=== PATIENT | female | born 1960 | race Caucasian/White ===

== ENCOUNTER 2017-03-03 19:34 | Emergency (ER) | payer OTHER ==
[2017-03-03 19:55] VITALS: BP 99/69
[2017-03-03] MEDS ORDERED: Ibuprofen TAB* 400 MG PO ONE (20:18)
--- NOTE | 2017-03-03 20:38 | UC ---
Lower Extremity/Ankle HPI - History of Current Complaint Chief Complaint: UCLowerExtremity Stated Complaint: RIGHT FOOT INJURY Time Seen by Provider: 03/03/17 20:29 Hx Obtained From: Patient ?: No Onset/Duration: Sudden Onset - jumped out of the back of a forklift picker truck and hurt foot and buttocks., Worse Since Severity Initially: Moderate Severity Currently: Moderate Aggravating Factor(s): Standing, Ambulation Alleviating Factor(s): Rest, Elevation Able to Bear Weight: No - using crutches - Risk Factors Gout Risk Factors: Age Over 40 DVT Risk Factors: Smoking - Allergies/Home Medications Allergies/Adverse Reactions: Allergies Allergy/AdvReac Type Severity Reaction Status Date / Time Penicillins Allergy Intermediate Rash Verified 03/03/17 19:43 Acetaminophen Allergy Unknown Vomiting Verified 03/03/17 19:44 [From Darvocet-N] Propoxyphene Allergy Unknown Vomiting Verified 03/03/17 19:44 [From Darvocet-N] Home Medications: Home Medications Ibuprofen TAB* [Motrin TAB* 800 MG] 800 mg PO Q6H PRN 03/03/17 [History Confirmed 03/03/17] QUEtiapine TAB* [SEROquel TAB*] 300 mg PO DAILY 03/03/17 [History Confirmed 07/08] PMH/Surg Hx/FS Hx/Imm Hx Respiratory History: COPD - Surgical History Surgical History: Yes Surgery Procedure, Year, and Place: hysterectomy, bi-lat knees--meniscus tears x2 each side - Family History Known Family History: Positive: Unknown - Adopted - Social History Occupation: Disabled Lives: Alone Alcohol Use: None Substance Use Type: None Smoking Status (MU): Heavy Every Day Tobacco Smoker Type: Cigarettes Amount Used/How Often: 1/2 ppd Length of Time of Smoking/Using Tobacco: 33 yrs Have You Smoked in the Last Year: Yes Household Exposure Type: Cigarettes Review of Systems Skin: Bruising - right foot Musculoskeletal: Arthralgia All Other Systems Reviewed And Are Negative: Yes Physical Exam Triage Information Reviewed: Yes Appearance: Well-Appearing, No Pain Distress - at rest with foot elevated, Thin Vital Signs: Initial Vital Signs Temp 98.8 F 03/03/17 19:47 Pulse 95 03/03/17 19:47 Resp 20 03/03/17 19:47 BP 99/69 03/03/17 19:47 Pulse Ox 98 03/03/17 19:47 Vital Signs Reviewed: Yes Eyes: Positive: Conjunctiva Inflamed Neck exam: Normal Respiratory: Positive: Decreased breath sounds Cardiovascular Exam: Normal Musculoskeletal: Positive: ROM Limited @ - right foot and ankle., Other: - Tender over the plantar fascia and lateral malleolus. Neurological Exam: Normal Psychological Exam: Normal Skin Exam: Normal Lower Extremity Course/Dx - Differential Dx/Diagnosis Differential Diagnosis/HQI/PQRI: Contusion, Dislocation, Fracture (Closed), Sprain Provider Diagnoses: Contusion foot. Sprain ankle. Discharge - Discharge Plan Condition: Stable Disposition: HOME Patient Education Materials: Foot Sprain (ED), Crutch Instructions (ED) Referrals: EVIE Silver [Primary Care Provider] - Paco Stafford MD [Medical Doctor] - Additional Instructions: Smoking Cessation Tricks. 1. Cut down by 1 cigarette per day every 2-3 days. Write the number of smokes for that day on the calendar. 2. Identify triggers to smoking: after meals, on the phone, in the car, with coffee, on breaks at work, etc. 3. Formulate a plan with a behavior to replace the smoking. Fireballs in the car , doodle pad on the phone, flavored creamer for the coffee, go for a walk after a meal or on break at work. 4. For stress smokes do deep breathing relaxation. Breath deep in through the nose hold the breath in for a few seconds then breath out slowly through the mouth. For follow up, call [facility] and ask for Dr. Allen.
--- NOTE | 2017-03-03 21:20 | RAD ---
Indication: Right ankle injury and tenderness. 3 views of the right ankle demonstrates no fracture. No other bone or joint abnormality is noted. IMPRESSION: No fracture of the right ankle is noted.
--- NOTE | 2017-03-03 21:21 | RAD ---
Indication:: Right heel pain. 3 views of the calcaneus demonstrates no fracture. Deformity of the head of the third metatarsal is noted. No recent fracture is noted. IMPRESSION: No fracture of the calcaneus or right foot is noted.
== END 2017-03-03 21:20 | disposition home or self-care (01) ==
LOC: UCCORT 19:34
DX: S90.31XA Contusion of right foot, initial encounter (principal); S93.401A Sprain of unspecified ligament of right ankle, initial encounter; W17.89XA Other fall from one level to another, initial encounter; Y93.9 Activity, unspecified; Y92.812 Truck as the place of occurrence of the external cause; J44.9 Chronic obstructive pulmonary disease, unspecified; Z90.710 Acquired absence of both cervix and uterus; Z88.6 Allergy status to analgesic agent; Z88.0 Allergy status to penicillin; F17.210 Nicotine dependence, cigarettes, uncomplicated
CPT/HCPCS: 99213; A9270-GY; G0463

== ENCOUNTER 2017-09-24 06:00 | Day surgery (SDC) | payer OTHER ==
[~2017-09-24 06:00] MED LIST: Buffered Lidocaine 0.9% SYRIN* 5 ML/SYR SYRINGE INTRADERM ONE; Dexamethasone TAB* 4 MG PO ONE; Famotidine IV* 10 MG/ML 2 ML (20 mg) IV ONE; Famotidine IV* 10 MG/ML 2 ML (20 mg) ONE
[2017-09-24] MEDS ORDERED: Clindamycin 900 MG IVPREMIX(* 900 MG/50 ML SDV IV ONE (06:05)
[2017-09-24] MEDS ORDERED: Bupivacaine 0.5% SDV PF* 10-30ML VIAL ONE (07:07)
[2017-09-24] MEDS ORDERED: Lidocaine 2% PF* 10 ML AMP ONE (07:07)
[2017-09-24] MEDS ORDERED: fentaNYL* 50 MCG/ML 2 ML VIAL (100 MCG VIAL) ONE ×3 (07:15→08:55)
[2017-09-24] MEDS ORDERED: Midazolam* 1 MG/ML 2 ML VIAL (2 MG) ONE (07:15)
[2017-09-24] MEDS ORDERED: Ketorolac INJ* 30 MG/ML 1 ML VIAL ONE (08:00)
[2017-09-24] MEDS ORDERED: Ondansetron INJ* 2 MG/ML VIAL ONE (08:00)
[2017-09-24] MEDS ORDERED: Propofol* 10 MG/ML 20 ML BTL IV PUSH ONE (08:00)
[2017-09-24] MEDS ORDERED: Phenylephrine INJ* 10 MG/ML 1 ML VIAL (10 MG) ONE (08:00)
[2017-09-24] MEDS ORDERED: HYDROmorphone INJ* 1 MG/ML CARPUJECT SYRINGE IV PRN (08:17)
[2017-09-24] MEDS ORDERED: DiMENhydriNATE IV* 50 MG/ML VIAL IV PUSH PRN (08:17)
[2017-09-24] MEDS ORDERED: Naloxone* 0.4 MG/ML 1 ML VIAL IV PRN (08:17)
[2017-09-24] MEDS: fentaNYL* 50 MCG/ML 2 ML VIAL (100 MCG VIAL) IV PRN ×2 (08:55→09:08)
[2017-09-24] MEDS ORDERED: oxyCODONE TAB* 5 MG TAB ONE (09:04)
[2017-09-24] MEDS ORDERED: HYDROmorphone INJ* 2 MG/ML CARPUJECT SYRINGE ONE (09:31)
[2017-09-24] MEDS ORDERED: DiMENhydriNATE IV* 50 MG/ML VIAL ONE (09:37)
[2017-09-24 10:32] VITALS: BP 131/72
--- NOTE | 2017-09-24 17:10 | RAD ---
CPT II Codes: 6045F INDICATION: Right ankle subtalar fusion. Fluoroscopic services provided for referring physician. 4.3 seconds of fluoroscopy time was used. 3 spot images demonstrates subtalar fusion. IMPRESSION: Fluoroscopic services provided for referring physician for fusion.
--- NOTE | 2017-09-25 14:51 | OP ---
DATE OF OPERATION: 09/24/17 - [facility] DATE OF : 62 ATTENDING SURGEON: Emeka Jane MD LIVESTOCK RANCHER: Dana Casillas PA-C PRE-OP DIAGNOSIS: Right subtalar arthrosis. POST-OP DIAGNOSIS: Right subtalar arthrosis. PRIMARY PROCEDURE: Right subtalar fusion, tibia bone graft. DESCRIPTION OF PROCEDURE: The patient was taken to the operating room where a medial longitudinal incision along the sinus tarsi in a Arvizu approach. Lamina clinical documentation improvement specialist was used to open the subtalar joint, which was markedly arthrotic. Curette and a small power bur was used to prepare the joint for arthrodesis. Proximally, at Gerdy's tubercle, we made a 2 cm corticotomy and harvested cancellous bone from the proximal tibia. The cancellous bone was mixed with some allograft and some DBX putty and placed along the subtalar joint space. We then pinned the joint with the 6.5 cannulated screw from the heel up to the body of the talus and matched this with a top down screw in the talar neck in the body of the calcaneus. X-rays intraoperatively showed satisfactory position. We packed allograft chips in to the proximal tibia in the defect and closed the periosteum with 2-0 Vicryl and 3-0 nylon in the foot. We irrigated thoroughly and closed both heel and dorsal wounds with nylon and subcutaneous 2-0 Vicryl and tram for the skin. Compression dressing, plaster splint applied. [id number]/[facility] #: [id number] MTDD
== END 2017-09-24 10:20 | disposition home or self-care (01) ==
LOC: OR 06:00
PROVIDERS: ATTEND Orthopaedic Surgery
DX: M19.171 Post-traumatic osteoarthritis, right ankle and foot (principal); S92.011D Displaced fracture of body of right calcaneus, subsequent encounter for fracture with routine healing; F17.210 Nicotine dependence, cigarettes, uncomplicated; J44.9 Chronic obstructive pulmonary disease, unspecified; F41.8 Other specified anxiety disorders; I73.9 Peripheral vascular disease, unspecified; X58.XXXD Exposure to other specified factors, subsequent encounter
CPT/HCPCS: 76001; A9270-GY; C1713; C1776; C9359; J1170; J1240; J1885; J2001; J2250; J2405; J2704; J3010; J8540

== ENCOUNTER → 2018-07-22 11:06 | Day surgery (SDC) | payer OTHER ==
[~2018-07-22 11:06] MED LIST changes: +Acetaminophen TAB* 325 MG PO PRN; +Atracurium* 10 MG/ML 10 ML VIAL ONE; +Bupivacaine 0.5%* 50 ML VIAL ONE; +Clindamycin 900 MG/D5W BAG(*) 900 MG/50 ML BAG IVPB ONE; +Dexamethasone IV* 4 MG/ML 1 ML (4 MG) IV SLOW PU ONE; +Dexamethasone IV* 4 MG/ML 1 ML (4 MG) ONE; -Dexamethasone TAB* 4 MG PO ONE; +DiMENhydriNATE IV* 50 MG/ML VIAL IV PUSH PRN; +HYDROcodone/ACETAMIN 5-325 MG* 1 TAB PO PRN; +Ketorolac INJ* 30 MG/ML 1 ML VIAL IV PRN; +Lactated Ringers 1000 ML Bag* 1,000 ML IV SCH; +Lidocaine 2% PF * 5 ML VIAL ONE; +Midazolam* 1 MG/ML 2 ML VIAL (2 MG) ONE; +Morphine VIAL* 4 MG/ML VIAL (1 ml vial) IV PRN; +Naloxone* 0.4 MG/ML 1 ML VIAL IV PRN; +PROCHLORPERAZINE INJ 5 MG/ML 2 ML VIAL IV PRN; +Phenylephrine INJ* 10 MG/ML 1 ML VIAL (10 MG) ONE; +Propofol* 10 MG/ML 20 ML BTL ONE; +fentaNYL* 50 MCG/ML 2 ML VIAL (100 MCG VIAL) IV PRN; +fentaNYL* 50 MCG/ML 5 ML VIAL (250 MCG VIAL) ONE
[2018-07-22 14:45] VITALS: BP 131/83
--- NOTE | 2018-07-23 02:36 | OP ---
DATE OF OPERATION: 07/22/18 - [facility] DATE OF : 62 SURGEON: Emeka Jane MD FILE CLERK: Sarai Franklin PA-C PRE-OP DIAGNOSIS: Painful heel screw from a previous subtalar fusion. POST-OP DIAGNOSIS: Painful heel screw from a previous subtalar fusion. OPERATIVE PROCEDURE: Removal of right heel screw. DESCRIPTION OF PROCEDURE: The patient was taken to the operating room where 1- cm longitudinal incision was made at the posterior heel. We cannulated the screw with a guidepin up to 6.5 set removing the screw with a cannulated screwdriver and a rongeur for the washer. We then irrigated thoroughly closing with interrupted Prolene sutures and a compression dressing applied. [id number]/[facility] #: [id number] MARY KAY
== END | disposition home or self-care (01) ==
LOC: OR 11:06
PROVIDERS: ATTEND Orthopaedic Surgery
DX: T84.84XA Pain due to internal orthopedic prosthetic devices, implants and grafts, initial encounter (principal); J44.9 Chronic obstructive pulmonary disease, unspecified; Z88.0 Allergy status to penicillin; F17.210 Nicotine dependence, cigarettes, uncomplicated; F41.8 Other specified anxiety disorders; E55.9 Vitamin D deficiency, unspecified; Y83.1 Surgical operation with implant of artificial internal device as the cause of abnormal reaction of the patient, or of later complication, without mention of misadventure at the time of the procedure
CPT/HCPCS: 88300; J1100; J2250; J2704; J3010

== ENCOUNTER 2019-07-18 10:46 | Emergency (ER) | payer OTHER ==
[2019-07-18 11:21] VITALS: BP 113/70
--- NOTE | 2019-07-18 13:18 | UC ---
Back Pain HPI - HPI Summary HPI Summary: 58-year-old female comes in with a chief complaint of low back pain. Patient reports on July 03, 2019 and she bent over the shower and had a sudden onset of low back pain with electric shock running down the back of her right leg. She has had sciatica before and the pain going down the right leg reminds her of the sciatic. Denies any weakness or numbness or difficulty controlling urine or bowels. The pain down the right leg is intermittent. She does not have that now. Pain is worse low back. Pain is worse with movement. - History of Current Complaint Chief Complaint: UCBackPain Stated Complaint: LOW BACK PAIN Time Seen by Provider: 07/18/19 13:07 Pain Intensity: 8 - Allergies/Home Medications Allergies/Adverse Reactions: Allergies Allergy/AdvReac Type Severity Reaction Status Date / Time Penicillins Allergy Intermediate Rash Verified 07/18/19 11:17 propoxyphene AdvReac Vomiting Verified 07/18/19 11:17 [From Ja] PMH/Surg Hx/FS Hx/Imm Hx Previously Healthy: Yes Respiratory History: COPD - Surgical History Surgical History: Yes Surgery Procedure, Year, and Place: Hysterectomy 1993. Bilateral knees-- meniscus tears x2 each side, 2002, 2003 & 2005. ENDOMETRIOSIS-2 Laparoscopies- states she has had 14. Right ankle fusion with hardware 10/07. Removal of hardware right ankle/foot 07/09 - Family History Known Family History: Positive: Unknown - Adopted - Social History Alcohol Use: None Substance Use Type: None Smoking Status (MU): Light Every Day Tobacco Smoker Type: Cigarettes Amount Used/How Often: 4 cigs per day Length of Time of Smoking/Using Tobacco: 33 yrs Have You Smoked in the Last Year: Yes Household Exposure Type: Cigarettes Review of Systems All Other Systems Reviewed And Are Negative: Yes Constitutional: Positive: Negative Skin: Positive: Negative Eyes: Positive: Negative ENT: Positive: Negative Respiratory: Positive: Negative Cardiovascular: Positive: Negative Gastrointestinal: Positive: Negative Genitourinary: Positive: Negative Motor: Positive: Negative Neurovascular: Positive: Negative Musculoskeletal: Positive: Other: - SEE HPI Neurological: Positive: Negative Psychological: Positive: Negative Is Patient Immunocompromised?: No Physical Exam Triage Information Reviewed: Yes Appearance: Well-Appearing, Well-Nourished, Pain Distress - MILD WITH ROM AND EXAM Vital Signs: Initial Vital Signs Temp 98.9 F 07/18/19 11:15 Pulse 113 07/18/19 11:15 Resp 18 07/18/19 11:15 BP 113/70 07/18/19 11:15 Pulse Ox 96 07/18/19 11:15 Vital Signs Reviewed: Yes Eye Exam: Normal Neck: Positive: Supple Respiratory: Positive: No respiratory distress Musculoskeletal: Positive: Other: - Tender to palpation mid low back. Legs have full range of motion full-strength normal sensation. Pain does increase in the low back with right hip flexion. Patellar reflexes 2+ bilaterally. Neurological: Positive: Alert Psychological: Positive: Age Appropriate Behavior Skin Exam: Normal Back Pain Course/Dx - Differential Dx/Diagnosis Provider Diagnosis: Low back pain, Right sided sciatica Discharge ED - Sign-Out/Discharge Documenting (check all that apply): Patient Departure All imaging exams completed and their final reports reviewed: No Studies - Discharge Plan Condition: Stable Disposition: HOME Prescriptions: Cyclobenzaprine TAB* [Flexeril 10 MG TAB*] 10 mg PO TID PRN #15 tab MDD 3 PRN Reason: Pain - Moderate Lidocaine PATCH 5%* [Lidoderm 5% Patch*] 1 patch TRANSDERM DAILY PRN #20 patch PRN Reason: Pain - Moderate Patient Education Materials: Sciatica (ED), Acute Low Back Pain (ED) Forms: *Work Release Referrals: Tania Soriano NP [Primary Care Provider] - Additional Instructions: FOLLOW UP WITH YOUR PRIMARY CARE DOCTOR OR SPORTS MEDICINE. GO TO THE EMERGENCY DEPARTMENT IF WORSE; WEAKNESS, NUMBNESS, DIFFICULTY CONTROLLING BOWEL OR BLADDER, PAIN OR ANY QUESTIONS OR CONCERNS. - Billing Disposition and Condition Condition: STABLE Disposition: Home
== END 2019-07-18 13:23 | disposition home or self-care (01) ==
LOC: UCCORT 10:46
DX: M54.31 Sciatica, right side (principal); M54.5 Low back pain; J44.9 Chronic obstructive pulmonary disease, unspecified; F17.210 Nicotine dependence, cigarettes, uncomplicated; Z96.661 Presence of right artificial ankle joint; Z98.1 Arthrodesis status; Z88.0 Allergy status to penicillin; Z88.5 Allergy status to narcotic agent
CPT/HCPCS: 99212; G0463

== ENCOUNTER 2022-04-25 12:41 | Observation (INO) ==
[2022-04-25] MEDS ORDERED: NS 0.9% 1000 ml BAG 1,000 ML IV ONE (12:48)
[2022-04-25] MEDS ORDERED: cefTRIAXone 1 gm/50 mL D5W 1 GM/50 ML BAG IV ONE (12:48)
[2022-04-25] MEDS ORDERED: Magnesium Sulfate 2 gm BAG 2 GM/50 ML BAG IVPB ONE (12:48)
[2022-04-25] MEDS ORDERED: Azithromycin 500 mg/250 ml NS 500 MG/250 ML BAG IVPB ONE (12:48)
[2022-04-25] MEDS ORDERED: Albuterol/Ipratropium NEB.SOL (2.5/0.5 MG) 3 ML NEB.SOLN ONE (13:07)
[2022-04-25] MEDS: Albuterol/Ipratropium NEB.SOL (2.5/0.5 MG) 3 ML NEB.SOLN INH SCH (13:36)
[2022-04-25 13:46] LABS: ABS Basophils 0.1 10^3/ul (0-0.2); ABS Eosinophils 0.1 10^3/ul (0-0.6); ABS Lymphocytes 1.3 10^3/ul (1.0-4.8); ABS Monocytes 0.9 10^3/ul (0-0.8); ABS Neutrophils 10.4 10^3/ul (1.5-7.7); Eosinophil % 0.6 %; Hematocrit 43 % (35-47); Lymphocyte % 9.9 %; Mean Corpuscular HGB Conc 33 g/dL (31-36); Mean Corpuscular Hemoglobin 29 pg (27-31); Mean Corpuscular Volume 88 fL (80-97); Mean Platelet Volume 8.7 fL (7.4-10.4); Platelet Count 228 10^3/uL (150-450); Red Blood Count 4.88 10^6 /uL (3.70-4.87); Red Cell Distribution Width 15 % (10-15); White Blood Count 12.7 10^3/uL (3.5-10.8)
[2022-04-25 13:54] LABS: INR 0.87 (0.89-1.11)
[2022-04-25] MEDS ORDERED: Albuterol/Ipratropium NEB.SOL (2.5/0.5 MG) 3 ML NEB.SOLN INH ONE (14:05)
[2022-04-25 14:12] LABS: Albumin 4.1 g/dL (3.2-5.2); Albumin/Globulin Ratio 1.6 (1-3); C Reactive Protein 1.34 mg/L (<8.01); Calcium 8.9 mg/dL (8.6-10.3); Globulin 2.5 g/dL (2-4); Potassium 4.2 mmol/L (3.5-5.0); Total Bilirubin 0.2 mg/dL (0.2-1.0); Total Protein 6.6 g/dL (6.4-8.9); eGFR CKD-EPI 101.9 (>60)
[2022-04-25 14:54] LABS: Urine Appearance Clear; Urine Bilirubin Negative (Negative); Urine Blood Negative (Negative); Urine Color Yellow; Urine Glucose Negative (Negative); Urine Ketones Trace (Negative); Urine Nitrite Negative (Negative); Urine Protein Negative (Negative); Urine Specific Gravity 1.012 (1.002-1.030); Urine Urobilinogen Negative (Negative)
[2022-04-25 15:08] LABS: High Sensitivity Troponin 1 Hr 7 pg/mL (<15)
[2022-04-25] MEDS ORDERED: Acetaminop/Codeine 300mg/30mg TAB PO ONE (16:54)
[2022-04-25] MEDS ORDERED: Iohexol 350 (CONTRAST) 500 ML MDV IV ONE (17:47)
[2022-04-25] MEDS ORDERED: Albuterol HFA INHALER 8 gm MDI INH PRN (20:08)
[2022-04-25] MEDS: Enoxaparin 40 MG/0.4 ML SYR SUBCUT SCH (20:38)
[2022-04-25] MEDS ORDERED: Albuterol/Ipratropium NEB.SOL (2.5/0.5 MG) 3 ML NEB.SOLN INH PRN (22:56)
[2022-04-26 06:45] LABS: ABS Basophils 0.1 10^3/ul (0-0.2); ABS Eosinophils 0.1 10^3/ul (0-0.6); ABS Lymphocytes 2.1 10^3/ul (1.0-4.8); ABS Monocytes 1.1 10^3/ul (0-0.8); ABS Neutrophils 7.4 10^3/ul (1.5-7.7); Eosinophil % 0.6 %; Hematocrit 41 % (35-47); Hemoglobin 13.3 g/dL (12.0-16.0); Lymphocyte % 19.4 %; Mean Corpuscular HGB Conc 33 g/dL (31-36); Mean Corpuscular Hemoglobin 29 pg (27-31); Mean Corpuscular Volume 88 fL (80-97); Mean Platelet Volume 8.3 fL (7.4-10.4); Platelet Count 267 10^3/uL (150-450); Red Cell Distribution Width 15 % (10-15); White Blood Count 10.8 10^3/uL (3.5-10.8)
[2022-04-26 06:48] LABS: INR 0.86 (0.89-1.11)
[2022-04-26 06:59] LABS: Calcium 9.2 mg/dL (8.6-10.3); Potassium 4.6 mmol/L (3.5-5.0)
[2022-04-26] MEDS: [UNRECOGNIZED DRUG - OTHER] INH SCH (10:09)
[2022-04-26] MEDS: Enoxaparin 40 MG/0.4 ML SYR SUBCUT SCH (21:09)
[2022-04-27 06:21] LABS: ABS Basophils 0.1 10^3/ul (0-0.2); ABS Eosinophils 0.1 10^3/ul (0-0.6); ABS Lymphocytes 2.8 10^3/ul (1.0-4.8); ABS Monocytes 1.1 10^3/ul (0-0.8); ABS Neutrophils 6.3 10^3/ul (1.5-7.7); Eosinophil % 0.8 %; Hematocrit 44 % (35-47); Hemoglobin 14.3 g/dL (12.0-16.0); Mean Corpuscular HGB Conc 33 g/dL (31-36); Mean Corpuscular Hemoglobin 29 pg (27-31); Mean Corpuscular Volume 87 fL (80-97); Mean Platelet Volume 8.2 fL (7.4-10.4); Platelet Count 272 10^3/uL (150-450); Red Blood Count 4.99 10^6 /uL (3.70-4.87); Red Cell Distribution Width 14 % (10-15); White Blood Count 10.3 10^3/uL (3.5-10.8)
[2022-04-27 06:40] LABS: Calcium 9.2 mg/dL (8.6-10.3); Potassium 4.2 mmol/L (3.5-5.0); eGFR CKD-EPI 105.8 (>60)
[2022-04-27] MEDS: [UNRECOGNIZED DRUG - OTHER] INH SCH (12:52)
[2022-04-27 16:35] VITALS: BP 126/88
== END 2022-04-27 18:50 | disposition home or self-care (01) ==
LOC: ED 12:41 → EDHOLD 12:41 → SUATTDRO 19:32 → MEDTELE 04-26 01:07
PROVIDERS: ADMIT Internal Medicine; ATTEND Internal Medicine

== ENCOUNTER 2023-06-09 19:16 | Inpatient (IN) ==
[2023-06-09] MEDS ORDERED: Albuterol HFA INHALER 8 gm MDI INH PRN (21:15)
[2023-06-09] MEDS: Enoxaparin 40 MG/0.4 ML SYR SUBCUT SCH (22:56)
[2023-06-10 03:45] LABS: ABS Lymphocytes 0.6 10^3/uL (1.0-4.8); ABS Monocytes 0.9 10^3/uL (0.0-0.9); ABS Neutrophils 8.5 10^3/uL (1.5-7.6); Eosinophil % 0.2 %; Hematocrit 31.4 % (35-45); Hemoglobin 10.2 g/dL (11.5-14.3); Lymphocyte % 6.1 %; Mean Corpuscular Hemoglobin 28.3 pg (27-33); Mean Corpuscular Hgb Conc 32.5 g/dL (31-36); Mean Corpuscular Volume 87.1 fL (80-97); Mean Platelet Volume 8.3 fL (7.5-11.2); PCO2 Arterial 72 mmHg (35-45); PO2 Arterial 146 mmHg (80-100); Platelet Count 256 10^3/uL (150-450); Red Cell Distribution Width 13.9 % (12-17)
[2023-06-10 04:18] LABS: Blood Urea Nitrogen 15 mg/dL (6-24); CO2 Carbon Dioxide 42 mmol/L (22-32); Calcium 8.2 mg/dL (8.6-10.3); Chloride 96 mmol/L (101-111); Creatinine, Serum 0.42 mg/dL (0.51-0.95); Glucose 141 mg/dL (70-100); Potassium 3.6 mmol/L (3.5-5.0); Sodium 137 mmol/L (135-145); eGFR CKD-EPI 111.2 (>60)
[2023-06-10] MEDS: NF:BUDESONIDE/GLYCOPYR/FORMOTEROL MDI (NF) INH SCH (17:08)
[2023-06-10] MEDS: Enoxaparin 40 MG/0.4 ML SYR SUBCUT SCH (20:11)
[2023-06-11 04:22] LABS: ABS Basophils 0.1 10^3/uL (0.0-0.1); ABS Eosinophils 0.2 10^3/uL (0.0-0.5); ABS Lymphocytes 2.4 10^3/uL (1.0-4.8); ABS Monocytes 1.1 10^3/uL (0.0-0.9); Eosinophil % 1.7 %; Hematocrit 31.8 % (35-45); Hemoglobin 10.4 g/dL (11.5-14.3); Lymphocyte % 27.4 %; Mean Corpuscular Hemoglobin 28.3 pg (27-33); Mean Corpuscular Hgb Conc 32.6 g/dL (31-36); Mean Corpuscular Volume 86.8 fL (80-97); Mean Platelet Volume 7.9 fL (7.5-11.2); Platelet Count 241 10^3/uL (150-450); Red Blood Count 3.67 10^6/uL (3.63-4.92); Red Cell Distribution Width 13.7 % (12-17); White Blood Count 8.7 10^3/uL (3.8-11.8)
[2023-06-11 04:43] LABS: Blood Urea Nitrogen 9 mg/dL (6-24); CO2 Carbon Dioxide 43 mmol/L (22-32); Calcium 8.2 mg/dL (8.6-10.3); Chloride 99 mmol/L (101-111); Creatinine, Serum 0.46 mg/dL (0.51-0.95); Glucose 84 mg/dL (70-100); Potassium 3.7 mmol/L (3.5-5.0); Sodium 141 mmol/L (135-145); eGFR CKD-EPI 108.8 (>60)
[2023-06-11] MEDS: NF:BUDESONIDE/GLYCOPYR/FORMOTEROL MDI (NF) INH SCH (08:18)
[2023-06-11] MEDS ORDERED: Albuterol/Ipratropium NEB.SOL (2.5/0.5 MG) 3 ML NEB.SOLN INH PRN (18:13)
[2023-06-11] MEDS: Enoxaparin 40 MG/0.4 ML SYR SUBCUT SCH (21:31)
[2023-06-12 06:29] LABS: ABS Basophils 0.1 10^3/uL (0.0-0.1); ABS Eosinophils 0.2 10^3/uL (0.0-0.5); ABS Monocytes 1.1 10^3/uL (0.0-0.9); ABS Neutrophils 4.6 10^3/uL (1.5-7.6); Hematocrit 32.9 % (35-45); Hemoglobin 10.7 g/dL (11.5-14.3); Lymphocyte % 25.1 %; Mean Corpuscular Hemoglobin 28.4 pg (27-33); Mean Corpuscular Hgb Conc 32.6 g/dL (31-36); Mean Corpuscular Volume 87.1 fL (80-97); Mean Platelet Volume 8.3 fL (7.5-11.2); Platelet Count 261 10^3/uL (150-450); Red Blood Count 3.78 10^6/uL (3.63-4.92); Red Cell Distribution Width 13.8 % (12-17)
[2023-06-12 06:39] LABS: Calcium 8.5 mg/dL (8.6-10.3); Creatinine, Serum 0.37 mg/dL (0.51-0.95); Potassium 3.7 mmol/L (3.5-5.0); eGFR CKD-EPI 114.7 (>60)
[2023-06-12] MEDS: NF:BUDESONIDE/GLYCOPYR/FORMOTEROL MDI (NF) INH SCH (08:22)
[2023-06-12 13:22] VITALS: BP 116/73
== END 2023-06-12 15:55 | disposition home or self-care (01) | DRG 189 ==
LOC: ICU 19:49 → SSU 06-11 09:27
PROVIDERS: ADMIT Internal Medicine; ATTEND Internal Medicine